=== PATIENT | male | born 1950 | race Caucasian/White ===

== ENCOUNTER 2017-02-12 05:30 | Day surgery (SDC) | payer OTHER ==
[~2017-02-12] VITALS: Ht 180.3 cm; Wt 85.3 kg
--- NOTE | ~2017-02-12 | O ---
[facility] [place] [address] OPERATIVE REPORT Name: ADRI GRIFFIN Room #: [facility]P [facility].#: [id number] Admission: 02/12/17 Attend Phys: Anish Justice MD Discharge: 02/13/17 Date of : 54 Report #: [id number] THIS REPORT FOR: //name// CC: Jd Justice DATE OF SERVICE: 02/12/2017 SURGEON: Anish Justice MD PREOPERATIVE DIAGNOSES: 1. Obstructive sleep apnea, severe, CPAP dependent. 2. Hypertrophy, soft palate. 3. Bilateral tonsillar hypertrophy. 4. Nasal septal deviation. 5. Inferior turbinate hypertrophy. 6. Snoring. 7. History of nasal septoplasty. POSTOPERATIVE DIAGNOSES: 1. Obstructive sleep apnea, severe, CPAP dependent. 2. Hypertrophy, soft palate. 3. Bilateral tonsillar hypertrophy. 4. Nasal septal deviation. 5. Inferior turbinate hypertrophy. 6. Snoring. 7. History of nasal septoplasty. OPERATION PERFORMED: 1. Nasal septoplasty. 2. Bilateral inferior turbinate submucous dissection. 3. Uvulopalatopharyngoplasty. 4. Bilateral tonsillectomy. INDICATIONS: The patient is a 66-year-old gentleman referred by Dr. Bojorquez for surgical options on obstructive sleep apnea . Polysomnogram had shown an apnea-hypopnea index of 60. The patient has been intolerant of CPAP secondary to claustrophobia. He inquired about options of surgery. Examination revealed obstruction of the nasal airway in addition to obstruction of the pharynx. The patient has a history of previous nasal septoplasty and has been left with a persistent deviation on the right. PROCEDURE: The patient was brought to the operating room and placed supine on the operating table. After adequate general anesthesia was achieved via endotracheal intubation, he was turned 90 degrees. Nasal septum, lateral wall [facility] [address] [place] [address] OPERATIVE REPORT Name: BARBARA GRIFFINJOHNNY Flores Room #: [facility]P [facility].#: [id number] Admission: 02/12/17 Attend Phys: Anish Justice MD Discharge: 02/13/17 Date of : 54 Report #: [id number] of the nose and turbinates were injected with 1% Xylocaine with 1:100,000 epinephrine, 4% cocaine pledgets were placed. He was then prepped and draped for surgery. The procedure began with the nasal portion. After prepping and draping, the left hemitransfixion incision was made. The patient had previously undergone septoplasty and there was evidence of previous removal of a portion of the quadrilateral cartilage. There was still a significant deviation of the perpendicular plate of the ethmoid and vomer. The careful dissection was done and back dissected around the caudal end of the septum, so this could be raised as this was the site of most deviation. Posteriorly, the cartilage was disarticulated from the remainder of the perpendicular plate of the ethmoid using a double action rongeur. A portion of perpendicular plate of the ethmoid and vomer were taken down allowing the quadrilateral cartilage to swing back to the midline. This relieved the obstruction. A hemitransfixion incision was then closed with interrupted 4-0 chromic and 4-0 chromic basting stitch was used to reapproximate mucoperichondrium. The inferior turbinates were fractured medially. The anterior end was opened. A submucous dissection done on the bone. The edges were reapproximated and the turbinate outfractured. This completed dissection on the nasal portion. Attention was then turned to the oral cavity. A McIvor mouth gag was introduced. Tongue was retracted and the patient suspended from the [place] stand. The soft palate was palpated. There was no submucous cleft. It was retracted with a soft catheter. Nasopharyngeal exam revealed no evidence of any adenoid mass or nasopharyngeal mass. Catheter was removed. Right tonsil was grasped, moved to midline, excised with Bovie cautery. Left tonsil was removed in similar fashion. Hemostasis with suction cautery. Uvula was then grasped. The palatal dimple was identified as the point of maximal excision. Using a skiving incision, taking more oral mucosa than nasopharyngeal mucosa, an incision was made along the palliate from the oropharyngeal surface to the nasopharyngeal surface. The edges were then squared off on the oral surface and the nasopharyngeal mucosa advanced to the oral mucosa with interrupted 3-0 Vicryl vertical mattress sutures. Complete closure was achieved on the palate. Nose, nasopharynx, and oral cavity were then irrigated. Once hemostasis was assured, he was returned to anesthesia, awakened without difficulty, returned to recovery in good condition. Sponge and needle counts were correct. There were no complications and the blood loss was about 50 mL. The patient will be watched overnight secondary to his severe apnea. DISCHARGE MEDICATIONS: Will include clindamycin 300 mg 1 t.i.d. for 10 days, Percocet 7.5/325 one-two q.4-6 hours p.r.n., and Phenergan suppository [address] [address] OPERATIVE REPORT Name: ADRI GRIFFIN Room #: [facility]P [facility].#: [id number] Admission: 02/12/17 Attend Phys: Anish Justice MD Discharge: 02/13/17 Date of : 54 Report #: [id number] per rectum q.4-6 hours p.r.n. He is instructed on light activity and a soft diet. <ELECTRONICALLY SIGNED> By: Anish Justice MD 02/14/17 1646 1401 1600 Anish Justice MD /nt
--- NOTE | ~2017-02-12 | S ---
[facility] [place] [address] SURGICAL PATH RPT PROCEDURE Name: ADRI TILLEY Room #: [facility]P [facility].#: [id number] Admission: 02/12/17 Date of : 54 Discharge: 02/13/17 Report #: [id number] Path Case #: [id number] PATHOLOGY REPORT COLLECTION DATE: 02/12/2017 RECEIVED DATE: 02/12/2017 SUBMITTING PHYS: Dr. Anish Justice OTHER PHYS: Dr. Jd Bojorquez SPECIMEN(S) RECEIVED: A.Right tonsil B.Left tonsil C.Uvula and soft palate * * * * * * * * * * * * FINAL DIAGNOSIS: A. "Right tonsil," tonsillectomy: - Tonsil with reactive changes and mild hypertrophy. B. "Left tonsil," tonsillectomy: - Tonsil with reactive changes and mild hypertrophy. C. "Uvula and soft palate," excision: - Uvula with benign squamous mucosa and submucosa showing submucosal edema and mild mucinous gland hyperplasia. - Soft palate with benign squamous mucosa and submucosa showing submucosal edema and mucinous gland hyperplasia. COMMENT: No dysplasia or malignancy is seen. Clinical correlation is recommended. (CLW:; 02/13/2017) PATHOLOGIST: Farzaneh Kirby M.D. REPORT ELECTRONICALLY SIGNED BY: Farzaneh Kirby M.D. DATE/TIME: 02/13/2017 14:31 * * * * * * * * * * * * GROSS PATHOLOGY: A. Received in formalin, labeled "Adri Tilley, right tonsil," is a tonsil measuring 2.5 x 1.7 x 1.0 cm in maximum dimensions. The mucosal surface is lopez with the typical crypts identified. Sectioning reveals lobulated, homogeneous light lopez cut surfaces with no grossly identifiable lesions. Safety Fire Boss tissue is submitted in cassette A1. B. Received in formalin, labeled "Adri Tilley, left tonsil," is a tonsil measuring 2.5 x 1.9 x 1.5 cm in maximum dimensions. The mucosal surface is lopez with the typical crypts identified. [address] [address] SURGICAL PATH RPT PROCEDURE Name: ADRI TILLEY Room #: [facility].#: [id number] Admission: 02/12/17 Date of : 54 Discharge: 02/13/17 Report #: [id number] Path Case #: [id number] Sectioning reveals lobulated, homogeneous light lopez cut surfaces with no grossly identifiable lesions. Safety Fire Boss tissue is submitted in cassette B1. C. Received in formalin labeled "Adri Tilley, uvula and soft palate," is a pyramidal piece of lopez-pink mucosal-covered tissue measuring 2.9 x 1.9 x 1.5 cm. Safety Fire Boss tissue is submitted in cassette C1. (TSD; 02/12/2017) CLINICAL HISTORY: Deviated septum, turbinate hypertrophy, KEO, tonsil hypertrophy INITIAL CPT CODE(S): A; 61230 B; 67858 C; 46449, 73751 Professional services performed by [facility] at [facility] [address], [place] [address] Technical services performed by [facility] at [address] [place] [address], [address], [place] [address]. [facility] [address] [place] [address] PHONE: [phone] DIRECTOR: Corwin Weston M.D. * * * END OF REPORT * * *
[~2017-02-12 05:30] MED LIST: ASPIR 8181 MG PO; COZAAR100 MG PO; FISH OIL 1,001000 M2 PO; HYDROCHLOROTHIA25 M2 PO; METFORMIN HCL500 MG PO; MORPHINE SULFAT15 M3 PO; MS CONTIN 60 MG60 M1 PO; OMEPRAZOLE 20 M20 M1 PO
[2017-02-12 11:18] VITALS: BP 151/61
[2017-02-12 16:45] VITALS: BP 169/75
[2017-02-12 17:00] VITALS: BP 190/71
[2017-02-12 17:30] VITALS: BP 179/81
[2017-02-12 18:00] VITALS: BP 174/66
[2017-02-12 19:35] VITALS: BP 178/83
[2017-02-13] VITALS: BP 159/80
[2017-02-13 04:12] VITALS: BP 166/73
[2017-02-13 08:00] VITALS: BP 147/82
[2017-02-13 13:22] VITALS: BP 147/82
== END 2017-02-13 14:25 | disposition home or self-care (01) ==
LOC: OR 05:30 → TBA 05:30 → OR 08:57 → 4S 17:09 → OR 02-13 14:25
DX: J34.2 Deviated nasal septum (principal); G47.33 Obstructive sleep apnea (adult) (pediatric); K13.79 Other lesions of oral mucosa; J35.1 Hypertrophy of tonsils; J34.3 Hypertrophy of nasal turbinates
CPT/HCPCS: 50010; 50101; 50386; 50398; 51609; 56526; 56528; 56529; 62110; 62900; 70005